=== PATIENT | female | born 1985 | race Caucasian/White ===

== ENCOUNTER 2022-04-23 10:24 | Outpatient (CLI) | payer OTHER, SELFPAY ==
[2022-04-23 12:18] LABS: Albumin* 4.5 g/dL (3.3-5.0); Chloride* 103 mmol/L (96-114); Potassium* 4.3 mmol/L (3.6-5.1); Sodium* 139 mmol/L (135-149)
[2022-04-23 12:21] LABS: Blood Urea Nitrogen* 7 mg/dL (5-24); Carbon Dioxide* 27 mmol/L (20-32); Creatinine* 0.7 mg/dL (0.5-1.5); Estimated Glomerular Filt Rate 116 ml/min; Glucose* 97 mg/dL (60-115); Phosphorus* 3.8 mg/dL (2.5-4.5); Uric Acid* 3.7 mg/dL (2.2-8.4)
[2022-04-23 12:30] LABS: Microalbumin Urine < 1 mg/dL
[2022-04-23 12:31] LABS: Creatinine Urine 8.4 mg/dL; Microalbumin Creatinine Ratio 110 mg/g (0-30)
[2022-04-27 11:59] LABS: Hours Collected 24 hr; Total Volume 2800 mL; Urine Supersaturation Interp Normal; pH, Urine 6.35 (5.00-7.50)
== END 2022-04-23 10:25 | disposition home or self-care (01) ==
PROVIDERS: PCP Family Medicine; Visit Provider Internal Medicine Nephrology
DX: N20.9 Urinary calculus, unspecified (principal); I10 Essential (primary) hypertension
CPT/HCPCS: 80069; 82043; 82310; 82340; 82436; 82507; 82570; 83735; 83945; 83970; 83986; 84105; 84133; 84300; 84392; 84550; 84560

== ENCOUNTER 2022-06-08 10:39 | Outpatient (CLI) | payer OTHER, SELFPAY ==
--- NOTE | 2022-06-08 11:00 | CRLHL7_ITS ---
For Patients: As a result of the Century Cures Act, medical imaging exams and procedure reports are released immediately into your electronic medical record. You may view this report before your referring provider. If you have questions, please contact your health care provider. Indication: urinary calculus Technique: Noncontrast CT abdomen and pelvis Please note that all CT scans at this facility use dose modulation, iterative reconstruction, and/or weight-based dosing when appropriate to reduce radiation dose to as low as reasonably achievable. Comparison: 10/05/2019 Findings: Innumerable small renal calculi again noted bilaterally, similar in number and size compared to the prior exam. No hydronephrosis or perinephric stranding. No ureteral or bladder stone. Lung bases clear. Normal liver and spleen. Gallbladder absent. Pancreas and adrenal glands normal. No adenopathy or free air. No free fluid or abscess. Normal uterus and ovaries. Normal appendix. No bowel obstruction. No hernia. No acute fracture. Impression: Stable nonobstructing bilateral renal calculi. Please note that all CT scans at this facility use dose modulation, iterative reconstruction, and/or weight-based dosing when appropriate to reduce radiation dose to as low as reasonably achievable. Dictated by Jose Fisher MD @ 06/08/2022 11:15:33 AM (Electronically Signed)
== END 2022-06-08 10:40 | disposition home or self-care (01) ==
LOC: CT 10:40
PROVIDERS: PCP Family Medicine; Visit Provider Internal Medicine Nephrology
DX: N20.9 Urinary calculus, unspecified (principal); N20.0 Calculus of kidney
CPT/HCPCS: 74176

== ENCOUNTER 2022-07-25 15:42 | Outpatient (CLI) | payer BC, SELFPAY ==
[2022-07-25 11:03] LABS: Albumin* 4.4 g/dL (3.3-5.0); Blood Urea Nitrogen* 6 mg/dL (5-24); Carbon Dioxide* 25 mmol/L (20-32); Chloride* 104 mmol/L (96-114); Cholesterol* 159 mg/dL (90-199); Creatinine Urine 40.5 mg/dL; Creatinine* 0.6 mg/dL (0.5-1.5); Estimated Glomerular Filt Rate 120 ml/min; Glucose* 90 mg/dL (60-115); HDL Cholesterol* 44 mg/dL (>=50); LDL Cholesterol Calculated 88 mg/dL (<100); Microalbumin Creatinine Ratio 20 mg/g (0-30); Microalbumin Urine < 1 mg/dL; Phosphorus* 3.1 mg/dL (2.5-4.5); Potassium* 4.1 mmol/L (3.6-5.1); Sodium* 139 mmol/L (135-149); Triglycerides* 136 mg/dL (40-149)
[2022-07-25 11:27] LABS: Uric Acid* 3.4 mg/dL (2.2-8.4)
[2022-08-01 17:07] LABS: Hours Collected 24 hr; Total Volume 2750 mL; Urine Supersaturation Interp Normal; pH, Urine 6.25 (5.00-7.50)
== END 2022-07-25 15:43 | disposition home or self-care (01) ==
PROVIDERS: PCP Family Medicine; Visit Provider Internal Medicine Nephrology
DX: N20.0 Calculus of kidney (principal); N20.9 Urinary calculus, unspecified
CPT/HCPCS: 80061; 80069; 82043; 82310; 82340; 82436; 82507; 82570; 83735; 83945; 83970; 83986; 84105; 84133; 84300; 84392; 84550; 84560

== ENCOUNTER 2023-07-22 08:30 | Outpatient (CLI) | payer OTHER, SELFPAY | END 2023-07-22 08:31 | disposition home or self-care (01) | LOC: NFLDREF 13:25 | PROVIDERS: PCP Family Medicine; Referring Provider Family Medicine; Visit Provider Internal Medicine Nephrology | DX: N20.9 Urinary calculus, unspecified (principal); Q61.5 Medullary cystic kidney | CPT/HCPCS: 80069; 82043; 82340; 82436; 82507; 82570; 83735; 83945; 83986; 84105; 84133; 84300; 84392; 84550; 84560 ==

== ENCOUNTER 2024-01-17 07:25 | Outpatient (CLI) | payer OTHER, SELFPAY ==
--- OUTSIDE RECORDS SUMMARY | 2024-01-22 12:59 | XMS_ITS ---
Author Name Unknown Organization [facility] Address [address] [place] [address] Care Team Providers Care Rough Carpenter Name Role Phone Unavailable Unavailable Unavailable Surgery Details Not on file Complications Check Surgery Details section. Procedure Estimated Blood Loss Check Surgery Details section. Procedure Findings Check Surgery Details section. Procedure Specimens Taken Check Surgery Details section.
--- OUTSIDE RECORDS SUMMARY | 2024-01-22 12:59 | XMS_ITS | Clinical Summary ---
Author Name Unknown Organization [facility] Address [address] [place] [address] Care Team Providers Care General Operations Agent Name Role Phone Unavailable Primary Care Provider Unavailabl e Source Comments Patient records contain information from all sites at [facility]. For routine questions regarding patient records, call [phone] during business hours, M-F 8:00 AM - 5:00 PM Central Time. Record requests for emergency care only can be directed to [phone] at any time.[facility] Allergies Active Allergy Reactions Criticality Noted Date Comments Amoxicillin Hives (Reselect Reaction) 6 Nickel Rash 06/01/2016 Medications Medication Sig Dispensed Refills Start Date End Date Status esomeprazole (NexIUM) [address] capsule Take 1 capsule (40 mg total) by mouth every morning before breakfast. 60 capsule 11 02/11/2023 Active tamsulosin (FLOMAX) 0.4 mg 24 hr capsule Take 1 capsule (0.4 mg total) by mouth as directed. 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 Hypercalciuria 10/16/2018 Urolithiasis 08/27/2018 Immunizations Name Administration Dates Next Due Tdap 07/25/2012 Social History Tobacco Use Types Packs/Day Years Used Date Smoking Tobacco: Never Nutrition Answer Date Recorded Nutrition: EVOO Fat Source Unknown 11/25 Nutrition: Servings of Fruits/Vegetables per Day Not on file 11/25/2020 Dental Answer Date Recorded Dental: Regular Dentist Unknown 11/26/19 21 Sex and Gender Information Value Date Recorded Sex Assigned at Not on file Gender Identity Not on file Sexual Orientation Not on file Last Filed Vital Signs Vital Sign Reading Time Taken Comments Blood Pressure 116/68 07/29/2023 4:39 PM CITY PLANNING ENGINEER Pulse 85 07/29/2023 4:39 PM CITY PLANNING ENGINEER Temperature - - Respiratory Rate 16 05/19/2016 8:14 AM CDT Value from [facility]. Oxygen Saturation - - Inhaled Oxygen Concentration - - Weight 79.3 kg (174 lb 13.2 oz) 07/29/2023 4:39 PM CITY PLANNING ENGINEER Height 160.2 cm (5' 3.07) 07/29/2023 4 :39 PM CITY PLANNING ENGINEER Body Mass Index 30.9 07/29/2023 4:39 PM CITY PLANNING ENGINEER Plan of Treatment Health Maintenance Due Date Last Done Comments Cervical Cancer Screening 1987 HIV Screening 1987 Hepatitis A Vaccines (1 of 2 - Risk 2-dose series) 2006 Hepatitis B Vaccines (1 of 3 - 19+ 3-dose series) 2006 Lipid (Cholesterol) Screening 07/30/2017 07/30/2012 COVID-19 Vaccine ( - 2022- season) 2023 01/15/2023, 02/24/2021, 02/03/2021 Depression Screening (Annual PHQ-2) 09/23/2023 DTaP,Tdap,and Td Vaccines (4 - Td or Tdap) 01/25/2028 01/24/2018, 11/05/2014, 07/25/2012 Hepatitis C Screening Completed 05/17/2016 Influenza Vaccine Completed 07/24/2023, , 07/29/2020, Additional history exists HPV Vaccines Aged Out No longer eligi ble based on patient's age to complete this topic Pneumococcal vaccine (0-64 years) Aged Out No longer eligible based on patient's age to complete this topic Procedures Procedure Name Priority Date/Time Associated Diagnosis Comments HCV AB SCRN W/REFLEX TO HCV PCR, S Routine 05/17/2016 4:21 AM CDT LIPID PANEL, S Routine 07/30/2012 12:07 PM CITY PLANNING ENGINEER from Last 3 Months or Most Recently Relevant to Health Maintenance Results * HCV AB Scrn w/Reflex to HCV PCR, S (05/17/2016 4:21 AM CDT) HCV Ab Screen, S Negative Negative [facility] Comment:Snzalp-xi-cuucbw rat io is <1.00. 05/17/2016 4:21 AM CDT 05/17/2016 4:21 AM CDT Adonis Washington M.D. LAB MICROBIOLOGY - B LOOD ORDERABLES [facility] [address] * (ABNORMAL) Lipid Panel (07/30/2012 12:07 PM CITY PLANNING ENGINEER) Total Cholesterol/HDL Ratio 4.38 2.20 - 4.40 POWERCHART Calculated LDL 126(H) 0 - 100 MGDL POWERCHART Cholesterol, Total 197 0 - 200 MGDL [facility] Comment:Reference value 0-11 months: Not Established Triglycerides 129 41 - 150 MGDL POWERCHART HX HDL 45 40 - 60 MGDL POWERCHART HXLDL/HDL 3 POWERCHART Blood 07/30/2012 12:0 7 PM CITY PLANNING ENGINEER Petra Miner M.D. LAB BLOOD ADD-ON POWERCHART from Last 3 Months or Most Recently Relevant to Health Maintenance [id number] [place] [id number]
--- OUTSIDE RECORDS SUMMARY | 2024-01-22 12:59 | XMS_ITS | Referral Summary ---
Author Name Unknown Organization [facility] Address [address] [place] [address] Care Team Providers Care Buffing Wheel Operator Name Role Phone Unavailable Primary Care Provider Unavailabl e Source Comments Patient records contain information from all sites at [facility]. For routine questions regarding patient records, call [phone] during business hours, M-F 8:00 AM - 5:00 PM Central Time. Record requests for emergency care only can be directed to [phone] at any time.[facility] Allergies Active Allergy Reactions Criticality Noted [...] Comments Blood Pressure 116/68 07/29/2023 4:39 PM CHURN DRILLER Pulse 85 07/29/2023 4:39 PM CHURN DRILLER Temperature - - Respiratory Rate 16 05/19/2016 8:14 AM CDT Value from [facility]. Oxygen Saturation - - Inhaled Oxygen Concentration - - Weight 79.3 kg (174 lb 13.2 oz) 07/29/2023 4:39 PM CHURN DRILLER Height 160.2 cm (5' 3.07) 07/29/2023 4 :39 PM CHURN DRILLER Body Mass Index 30.9 07/29/2023 4:39 PM CHURN DRILLER Plan of Treatment Not on file Procedures Procedure Name Priority Date/Time Associated Diagnosis Comments HCV AB SCRN W/REFLEX TO HCV PCR, S Routine 05/17/2016 4:21 AM CDT LIPID PANEL, S Routine 07/30/2012 12:07 PM CHURN DRILLER from Last 3 Months or Most Recently Relevant to Health Maintenance Results * HCV AB Scrn w/Reflex to HCV PCR, S (05/17/2016 4:21 AM CDT) Pathologist [facility] HCV Ab Screen, S Negative Negative [facility] Comment:Exhseg-fb-wcuuaz rat io is <1.00. 05/17/2016 4:21 AM CDT 05/17/2016 4:21 AM CDT Adonis Washington M.D. LAB MICROBIOLOGY - B LOOD ORDERABLES [facility] [address] [place], [place] [address] * (ABNORMAL) Lipid Panel (07/30/2012 12:07 PM CHURN DRILLER) Total Cholesterol/HDL Ratio 4.38 2.20 - 4.40 POWERCHART Calculated LDL 126(H) 0 - 100 MGDL POWERCHART Cholesterol, Total 197 0 - 200 MGDL [facility] Comment:Reference value 0-11 months: Not Established Triglycerides 129 41 - 150 MGDL POWERCHART HX HDL 45 40 - 60 MGDL POWERCHART HXLDL/HDL 3 POWERCHART Blood 07/30/2012 12:0 7 PM CHURN DRILLER Petra Miner M.D. LAB BLOOD ADD-ON POWERCHART from Last 3 Months or Most Recently Relevant to Health Maintenance [id number] [place] [id number]
== END 2024-01-17 07:26 | disposition home or self-care (01) ==
LOC: NFLDREF 01-22 12:57
PROVIDERS: PCP Family Medicine; Referring Provider Family Medicine; Visit Provider Internal Medicine Nephrology
DX: D64.9 Anemia, unspecified (principal); N20.9 Urinary calculus, unspecified; Q61.5 Medullary cystic kidney
CPT/HCPCS: 80069; 82043; 82306; 82310; 82340; 82436; 82507; 82570; 82728; 83540; 83550; 83735; 83945; 83970; 83986; 84105; 84133; 84300; 84392; 84550; 84560

== ENCOUNTER 2024-07-27 07:30 | Outpatient (CLI) | payer OTHER, SELFPAY | END 2024-07-27 07:31 | disposition home or self-care (01) | LOC: NFLDREF 07-30 06:40 | PROVIDERS: PCP Family Medicine; Referring Provider Family Medicine; Visit Provider Internal Medicine Nephrology | DX: N20.9 Urinary calculus, unspecified (principal); D64.9 Anemia, unspecified; R82.994 Hypercalciuria; Q61.5 Medullary cystic kidney | CPT/HCPCS: 80061; 80069; 82043; 82340; 82436; 82507; 82570; 82728; 83540; 83550; 83735; 83945; 83970; 83986; 84105; 84133; 84300; 84392; 84550; 84560 ==

== ENCOUNTER 2024-08-11 12:36 | Outpatient (CLI) | payer OTHER, SELFPAY ==
--- NOTE | 2024-08-11 13:00 | CRLHL7_ITS ---
For Patients: As a result of the Century Cures Act, medical imaging exams and procedure reports are released immediately into your electronic medical record. You may view this report before your referring provider. If you have questions, please contact your health care provider. INDICATION: Urinary calculus TECHNIQUE: CT abdomen and pelvis without contrast. COMPARISON: CT 06/08/2022 FINDINGS: Lower chest: Unremarkable. Liver: Normal in size and attenuation. No suspicious masses. Gallbladder and bile ducts: Cholecystectomy. Pancreas: Unremarkable. No mass or inflammation. Spleen: Normal in size. No masses. Adrenal glands: Normal in size. No nodules. Kidneys: Bilateral nonobstructing renal calculi. Bladder unremarkable. No hydronephrosis. Urinary GI tract: Unremarkable. Normal in caliber. No sign of mass or inflammation. Normal appendix. Vasculature: Abdominal aorta is normal in caliber. Lymph nodes: No lymphadenopathy. Peritoneum/Abdominal Wall: Unremarkable. No sign of mass or infiltration. No free air or significant free fluid. Pelvis: Unremarkable. No pelvic masses. Bones: Unremarkable for age. IMPRESSION: 1. Bilateral nonobstructing renal calculi. Please note that all CT scans at this facility use dose modulation, iterative reconstruction, and/or weight-based dosing when appropriate to reduce radiation dose to as low as reasonably achievable. Dictated by Myra Bruner MD @ 08/12/2024 8:07:05 AM (Electronically Signed)
== END 2024-08-11 12:37 | disposition home or self-care (01) ==
LOC: CT 12:36
PROVIDERS: PCP Family Medicine; Visit Provider Internal Medicine Nephrology
DX: N20.9 Urinary calculus, unspecified (principal)
CPT/HCPCS: 74176

== ENCOUNTER 2025-02-08 07:58 | Outpatient (CLI) | payer OTHER, SELFPAY | END 2025-02-08 07:59 | disposition home or self-care (01) | LOC: NFLDREF 02-17 00:51 | PROVIDERS: PCP Family Medicine; Referring Provider Family Medicine; Visit Provider Internal Medicine Nephrology | DX: N20.9 Urinary calculus, unspecified (principal) | CPT/HCPCS: 82340; 82436; 82507; 83735; 83945; 83986; 84105; 84133; 84300; 84392; 84560 ==

== ENCOUNTER 2025-03-01 16:25 | Outpatient (CLI) | payer OTHER, SELFPAY | END 2025-03-01 16:26 | disposition home or self-care (01) | PROVIDERS: PCP Family Medicine; Visit Provider Family Medicine | DX: Z00.00 Encounter for general adult medical examination without abnormal findings (principal); D64.9 Anemia, unspecified; E55.9 Vitamin D deficiency, unspecified; Z13.6 Encounter for screening for cardiovascular disorders; Z12.4 Encounter for screening for malignant neoplasm of cervix | CPT/HCPCS: 80076; 82306; 82728; 83540; 83550; 88141; 88142 ==

== ENCOUNTER 2025-03-17 12:21 | Outpatient (CLI) | payer OTHER, SELFPAY | END 2025-03-17 12:22 | disposition home or self-care (01) | LOC: NFLDREF 03-21 01:28 | PROVIDERS: PCP Family Medicine; Referring Provider Family Medicine; Visit Provider Physician Assistant Surgical | DX: R35.89 Other polyuria (principal) | CPT/HCPCS: 87086 ==

== ENCOUNTER 2025-03-18 08:46 | Outpatient (CLI) | payer OTHER, SELFPAY | END 2025-03-18 08:47 | disposition home or self-care (01) | LOC: NFLDREF 03-22 14:42 | PROVIDERS: PCP Family Medicine; Referring Provider Family Medicine; Visit Provider Internal Medicine Nephrology | DX: R39.15 Urgency of urination (principal) | CPT/HCPCS: 82784; 86231; 86258; 86364 ==

== ENCOUNTER 2025-06-17 14:44 | Outpatient (CLI) | payer OTHER, SELFPAY ==
--- NOTE | 2025-06-17 15:00 | CRLHL7_ITS ---
For Patients: As a result of the Century Cures Act, medical imaging exams and procedure reports are released immediately into your electronic medical record. You may view this report before your referring provider. If you have questions, please contact your health care provider. INDICATION: BILATERAL SCREENING MAMMOGRAM, ASYMPTOMATIC 40 Y/O FEMALE COMPARISON: BASELINE TECHNIQUE: Digital mammogram in CC and MLO projections including computer-aided detection (CAD) and tomosynthesis. BREAST COMPOSITION: The breasts are heterogeneously dense, which may obscure small masses. FINDINGS: No suspicious findings. ASSESSMENT: BI-RADS 1 Negative RECOMMENDATION: Annual screening mammogram. A lay language report of this examination will be provided to the patient. Dictated by: Jose Fisher MD @ 06/18/2025 10:11:46 (Electronically Signed)
== END 2025-06-17 14:45 | disposition home or self-care (01) ==
LOC: MAMMO 14:45
PROVIDERS: PCP Family Medicine; Visit Provider Family Medicine
DX: Z12.31 Encounter for screening mammogram for malignant neoplasm of breast (principal); R92.333 Mammographic heterogeneous density, bilateral breasts
CPT/HCPCS: 77063; 77067

== ENCOUNTER 2025-08-16 08:15 | Outpatient (CLI) | payer OTHER, SELFPAY | END 2025-08-16 08:16 | disposition home or self-care (01) | LOC: NFLDREF 08-21 17:04 | PROVIDERS: PCP Family Medicine; Referring Provider Family Medicine; Visit Provider Internal Medicine Nephrology | DX: Z87.442 Personal history of urinary calculi (principal) | CPT/HCPCS: 80061; 80069; 82043; 82340; 82436; 82507; 82570; 82728; 83540; 83550; 83735; 83945; 83970; 83986; 84105; 84133; 84300; 84392; 84450; 84460; 84550; 84560; 87086 ==

== ENCOUNTER 2025-09-08 12:40 | Outpatient (CLI) | payer OTHER, SELFPAY ==
--- NOTE | 2025-09-08 13:00 | CRLHL7_ITS ---
For Patients: As a result of the Century Cures Act, medical imaging exams and procedure reports are released immediately into your electronic medical record. You may view this report before your referring provider. If you have questions, please contact your health care provider. Indication: History of stones Technique: Noncontrast CT abdomen and pelvis Please note that all CT scans at this facility use dose modulation, iterative reconstruction, and/or weight-based dosing when appropriate to reduce radiation dose to as low as reasonably achievable. Comparison: 08/11/2024 Findings: Numerous calcified stones are present within each kidney measuring 3 millimeters or less. In addition, there is a 7 millimeter partially obstructing stone within the left proximal ureter resulting in mild left proximal hydro ureter and periureteral stranding. Mild prominence of the left renal pelvis. Normal right ureter. No bladder stone. Incidental small right ovarian cyst. Normal left ovary. Uterus normal. No bowel obstruction. Normal adrenal glands. Spleen unremarkable. Normal pancreas. Gallbladder absent. Liver unremarkable. Lung bases clear. 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 Impression: Partially obstructing 7 millimeter left proximal ureteral stone. Nonobstructing right renal calculi. Please note that all CT scans at this facility use dose modulation, iterative reconstruction, and/or weight-based dosing when appropriate to reduce radiation dose to as low as reasonably achievable. Dictated by Jose Fisher MD @ 09/08/2025 2:10:29 PM (Electronically Signed)
== END 2025-09-08 12:41 | disposition home or self-care (01) ==
LOC: CT 12:41
PROVIDERS: PCP Family Medicine; Visit Provider Internal Medicine Nephrology
DX: N20.1 Calculus of ureter (principal); N20.0 Calculus of kidney
CPT/HCPCS: 74176